=== PATIENT | male | born 1975 | race African-American/Black ===

== ENCOUNTER 2017-08-20 23:02 | Inpatient (IN) | payer OTHER ==
[~2017-08-20] VITALS: Ht 190.5 cm; Wt 125.0 kg
[2017-08-20 23:10] VITALS: BP 173/107; PULSE 99; RESP 18; TEMP 98.1; O2SAT 100
[2017-08-20 23:15] VITALS: O2SAT 100
[2017-08-20] MEDS ORDERED: PROPOFOL 500 MG/50 ML INJ 50 ML ONE (23:15)
[2017-08-20 23:27] VITALS: O2SAT 100
[2017-08-20] MEDS ORDERED: SODIUM CHLORIDE 0.9% FLUSH 10 ML FLUSH IVF PRN (23:30)
[2017-08-20] MEDS ORDERED: ONDANSETRON HCL 4 MG/2 ML VIAL IVP ONE (23:30)
[2017-08-20 23:32] VITALS: BP 173/100; PULSE 76; RESP 18; O2SAT 100
[2017-08-20] MEDS ORDERED: PROPOFOL 200 MG/20 ML AMP IV ONE (23:45)
[2017-08-20 23:47] LABS: AUTOMATED NEUTROPHIL # 6.8 TH/MM3 (1.8-7.7); BASOPHIL % 0.4 % (0.0-2.0); EOSINOPHIL # 0.2 TH/MM3 (0-0.4); EOSINOPHIL % 1.6 % (0.0-4.0); HEMATOCRIT 45.1 % (39.0-51.0); HEMOGLOBIN 15.6 GM/DL (13.0-17.0); LYMPH % 23.3 % (9.0-44.0); LYMPHOCYTE # 2.5 TH/MM3 (1.0-4.8); MEAN CORPUSCULAR HEMOGLOBIN 31.8 PG (27.0-34.0); MEAN CORPUSCULAR HGB CONC 34.6 % (32.0-36.0); MEAN PLATELET VOLUME 7.4 FL (7.0-11.0); MONO % 10.2 % (0.0-8.0); MONOCYTE # 1.1 TH/MM3 (0-0.9); NEUT % 64.5 % (16.0-70.0); PLATELET COUNT 224 TH/MM3 (150-450); RED CELL DISTRIBUTION WIDTH 13.3 % (11.6-17.2); WHITE BLOOD COUNT 10.6 TH/MM3 (4.0-11.0)
[2017-08-21 00:06] LABS: PROTHROMBIN TIME - PATIENT 10.1 SEC (9.8-11.6)
--- NOTE | 2017-08-21 00:18 | RADRPT ---
EXAM DATE/TIME: 08/20/2017 23:41 [facility] COMPARISON: No previous studies available for comparison. INDICATIONS : Evaluate for any pulmonary disease as patient is pre-op for right ankle surgery. MEDICAL HISTORY : None. SURGICAL HISTORY : None. ENCOUNTER: Initial ACUITY: 1 day PAIN SCORE: 0/10 LOCATION: Bilateral chest FINDINGS: A single view of the chest demonstrates the lungs to be symmetrically aerated without evidence of mas s, infiltrate or effusion. The cardiomediastinal contours are unremarkable. Osseous structures are intact. CONCLUSION: Normal examination. Angelito Tobias Jr., MD on August 21, 2017 at 0:15 Board Certified Radiologist. This report was verified electronically.
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
[2017-08-21 00:21] LABS: ALBUMIN 3.8 GM/DL (3.4-5.0); ALKALINE PHOSPHATASE 68 U/L (45-117); ALT (GPT) 47 U/L (12-78); AST (GOT) 35 U/L (15-37); BICARBONATE 27.7 MEQ/L (21.0-32.0); BLOOD UREA NITROGEN 17 MG/DL (7-18); CALCIUM 8.5 MG/DL (8.5-10.1); CHLORIDE 106 MEQ/L (98-107); CREATININE 1.27 MG/DL (0.60-1.30); GLOMERULAR FILTRATION RATE 62 ML/MIN (>89); GLUCOSE,RANDOM 99 MG/DL (74-106); SODIUM (NA) 142 MEQ/L (136-145); TOTAL BILIRUBIN ADULT 0.2 MG/DL (0.2-1.0); TOTAL PROTEIN 7.6 GM/DL (6.4-8.2)
--- NOTE | 2017-08-21 00:21 | RADRPT ---
EXAM DATE/TIME: 08/20/2017 23:44 [facility] COMPARISON: No previous studies available for comparison. INDICATIONS : Post reduction right ankle fracture/dislocation. MEDICAL HISTORY : None. SURGICAL HISTORY : None. ENCOUNTER: Initial ACUITY: 1 day PAIN SCORE: 10/10 LOCATION: Right Ankle FINDINGS: 4 views of the right ankle show successful reduction of the previously seen dislocation at the tibiot alar joint. No posterior malleolar fracture seen involving the distal tibia as suspected on the prior study. There is an acute fracture that is obliquely oriented in nature involving the distal fibular metaphysis. No significant angulation. 5 mm of displacement of the fracture fragment laterally and po steriorly. CONCLUSION: 1. Successful reduction of the previously seen tibiotalar dislocation. 2. No posterior malleolar fracture observed on these images as was suspected on the prior study. 3. Distal fibular fracture. Angelito Tobias Jr., MD on August 21, 2017 at 0:18 Board Certified Radiologist. This report was verified electronically.
[2017-08-21] MEDS ORDERED: SODIUM CHLORIDE 0.9% FLUSH 10 ML FLUSH IV FLUSH PRN ×3 (01:00→16:45)
[2017-08-21] MEDS ORDERED: NALOXONE HCL 0.4 MG/ML AMP IV PUSH PRN ×2 (01:00→16:45)
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
[2017-08-21] MEDS: MORPHINE SULFATE 2 MG/ML INJ IV PUSH PRN ×2 (02:19→09:32)
[2017-08-21 03:00] VITALS: BP 166/101; PULSE 76; RESP 18; TEMP 95.9; O2SAT 98
[2017-08-21] MEDS ORDERED: TETANUS/DIPHTHERIA TOXOID ADULT 0.5 ML VIAL IM ONE (03:00)
[2017-08-21] MEDS ORDERED: ceFAZolin 2 GM PREMIX 50 ML IV ONE (03:00)
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
[2017-08-21 04:00] VITALS: BP 139/82; PULSE 63; RESP 18; TEMP 97.4; O2SAT 98
[2017-08-21 08:00] VITALS: BP 145/87; PULSE 75; RESP 16; TEMP 98.5; O2SAT 99
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
[2017-08-21] MEDS ORDERED: SODIUM CHLORIDE 0.9% FLUSH 10 ML FLUSH IV FLUSH SCH ×3 (09:00→21:00)
[2017-08-21] MEDS ORDERED: LIDOCAINE HCL 1% PF 5 ML SYRINGE OTHER ONE (12:00)
[2017-08-21] MEDS ORDERED: PROPOFOL 200 MG/20 ML AMP IV ONE (12:00)
[2017-08-21] MEDS ORDERED: LACTATED RINGER'S 1000 ML INJ 1,000 ML IV ONE (12:00)
[2017-08-21] MEDS ORDERED: DEXAMETHASONE SOD PHOS 4 MG/ML VIAL IV ONE (12:00)
[2017-08-21] MEDS ORDERED: ONDANSETRON HCL 4 MG/2 ML VIAL IV ONE (12:00)
[2017-08-21] MEDS ORDERED: BUPIVACAINE/EPINEPHRINE 0.25% 50 ML VIAL ONE (12:54)
[2017-08-21] MEDS ORDERED: GENTAMICIN SULFATE 80 MG/2 ML VIAL ONE ×2 (12:54→12:58)
[2017-08-21] MEDS ORDERED: ceFAZolin 2 GM PREMIX 50 ML ONE (13:14)
[2017-08-21] MEDS ORDERED: VANCOMYCIN HCL 1000 MG VIAL ONE (13:14)
[2017-08-21] MEDS ORDERED: ACETAMINOPHEN 1000 MG/100 ML 100 ML IV ONE (13:16)
[2017-08-21] MEDS ORDERED: fentaNYL CITRATE 250 MCG/5 ML AMP ONE (13:17)
[2017-08-21] MEDS ORDERED: HYDROmorphone HCL PF 2 MG/ML VIAL ONE (13:17)
[2017-08-21] MEDS ORDERED: MIDAZOLAM HCL 2 MG/2 ML VIAL ONE (13:17)
[2017-08-21] MEDS ORDERED: LACTATED RINGER'S 1000 ML IV PRN (13:45)
[2017-08-21] MEDS ORDERED: METOPROLOL TARTRATE 25 MG TAB PO PRN (13:45)
[2017-08-21] MEDS ORDERED: CHLORHEXIDINE GLUCONATE 2 % 1 PACK (2 CLOTHS) TOPICAL PRN (13:45)
[2017-08-21] MEDS ORDERED: SODIUM CHLORID 0.9% 500 ML IV PRN (13:45)
[2017-08-21] MEDS ORDERED: POVIDONE IODINE 5% (ANTISEPSIS KIT) 4 APPLICATIONS EACH NARE PRN (13:45)
[2017-08-21] MEDS ORDERED: INSULIN HUMAN REGULAR 1,000 UNITS/10 ML VIAL SQ PRN (13:45)
--- NOTE | 2017-08-21 13:58 | EKG ---
Date Performed: 08/20/2017 Time Performed: 23:35:11 PTAGE: 42 years EKG: Sinus rhythm WITH SINUS ARRHYTHMIA NORMAL ECG NO PREVIOUS TRACING DOCTOR: Savanna Bradley Interpretating Date/Time 08/21/2017 13:52:55
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
[2017-08-21] MEDS ORDERED: Post-op Orders (for Pharmacy) XX ONE (15:00)
[2017-08-21] MEDS ORDERED: *morphine SULFATE 4 MG/ML PERIprocedure ONLY ONE (15:02)
[2017-08-21] MEDS ORDERED: *ENALAPRILAT 1.25 MG/ML VIAL PERIprocedural Use ONLY ONE (15:19)
--- NOTE | 2017-08-21 15:27 | RADRPT ---
EXAM DATE/TIME: 08/21/2017 14:15 [facility] COMPARISON: TIBIA/FIBULA RIGHT (AP/LAT), August 20, 2017, 23:34. ANKLE RIGHT COMPLETE ([id number]), August 20, 2017, 23:44. INDICATIONS : ORIF of the right ankle. MEDICAL HISTORY : Smoker. SURGICAL HISTORY : None. ENCOUNTER: Subsequent ACUITY: 2 days PAIN SCORE: Non-responsive. LOCATION: Right lateral ankle. FINDINGS: 5 intraprocedural fluoroscopic images are submitted. There has been plate and screw fixation of commi nuted distal fibular fracture with compression screw fixation of the distal tibia and fibula. Hardwar e appears intact and well-positioned. There is near-anatomic alignment. No new fractures. CONCLUSION: 1. Status post right ankle ORIF, as above. Serjio Parsons MD on August 21, 2017 at 15:23 Board Certified Radiologist. This report was verified electronically.
[2017-08-21] MEDS ORDERED: DO NOT ADM ANY ANTICOAGULANT DRUGS PRN (15:30)
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
[2017-08-21] MEDS ORDERED: METOCLOPRAMIDE HCL 10 MG/2 ML VIAL IV PUSH PRN (16:45)
[2017-08-21] MEDS ORDERED: MORPHINE SULFATE 2 MG/ML INJ IV PUSH PRN (16:45)
[2017-08-21] MEDS ORDERED: oxyCODONE/ACETAMINOPHEN 10 MG/325 MG TAB PO PRN (16:45)
[2017-08-21] MEDS ORDERED: MORPHINE SULFATE 4 MG/ML INJ IV PUSH PRN ×3 (16:45→17:30)
[2017-08-21] MEDS ORDERED: oxyCODONE/ACETAMINOPHEN 5 MG/325 MG TAB PO PRN (16:45)
[2017-08-21] MEDS ORDERED: ONDANSETRON HCL 4 MG/2 ML VIAL IVP PRN (16:45)
[2017-08-21] MEDS ORDERED: BISACODYL 10 MG SUPP RECTAL PRN (16:45)
[2017-08-21] MEDS ORDERED: ZOLPIDEM TARTRATE 5 MG TAB PO PRN (16:45)
[2017-08-21] MEDS ORDERED: ENOXAPARIN SODIUM 40 MG/0.4 ML SYRINGE SQ SCH (16:45)
[2017-08-21] MEDS ORDERED: ACETAMINOPHEN 325 MG TAB PO PRN ×2 (16:45)
[2017-08-21] MEDS ORDERED: LACTULOSE SYRUP 20 GM/30 ML CUP PO PRN (16:45)
[2017-08-21] MEDS ORDERED: MAGNESIUM HYDROXIDE SUSP 30 ML CUP PO PRN (16:45)
[2017-08-21] MEDS ORDERED: SENNOSIDES 8.6 MG TAB PO PRN (16:45)
[2017-08-21] MEDS ORDERED: WALKER WHEELS/F1 MIS (17:03)
[2017-08-21] MEDS ORDERED: OXYC1TAB36 PO (17:03)
[2017-08-21] MEDS ORDERED: SENN187 PO (17:03)
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
[2017-08-21 17:20] VITALS: BP 144/85; PULSE 84; RESP 15; TEMP 98.2; O2SAT 98
[2017-08-21] MEDS ORDERED: DOCUSATE SODIUM 50 MG/SENNA 8.6 MG TAB PO SCH (21:00)
== END 2017-08-21 17:30 | disposition home or self-care (01) | DRG 494 ==
LOC: NEPE 23:02 → NEDA 08-21 00:50 → NEDH 08-21 06:45 → UNDODEPER 08-22 02:13
PROVIDERS: ADMIT Hospitalist; ATTEND Hospitalist
PROC: 0SSF04Z Reposition Right Ankle Joint with Internal Fixation Device, Open Approach (ICD-10-PCS; 2017-08-21)
PROC: 0SSFXZZ Reposition Right Ankle Joint, External Approach (ICD-10-PCS; 2017-08-21)
PROC: 0QSJ04Z Reposition Right Fibula with Internal Fixation Device, Open Approach (ICD-10-PCS; principal; 2017-08-21 13:23)
DX: S82.841A Displaced bimalleolar fracture of right lower leg, initial encounter for closed fracture (principal); E66.9 Obesity, unspecified; S93.04XA Dislocation of right ankle joint, initial encounter; Z72.0 Tobacco use; V29.9XXA Motorcycle rider (driver) (passenger) injured in unspecified traffic accident, initial encounter; Z23 Encounter for immunization; Z68.34 Body mass index [BMI] 34.0-34.9, adult
CPT/HCPCS: 27840; 71045; 73590; 73610; 76000; 80053; 85025; 85610; 85730; 90714; 93005; 99152; C1713; J0131; J0690; J1100; J1170; J1580; J2250; J2270; J2405; J3010; J3370; J7120